=== PATIENT | female | born 1950 | race Caucasian/White ===

== ENCOUNTER 2020-03-22 01:32 | Inpatient (IN) | payer MEDICARE, BC ==
--- NOTE | 2020-03-22 01:52 | EDM.PDOC ---
ED HPI GENERAL MEDICAL PROBLEM - General Chief Complaint: General Stated Complaint: generalized weakness Time Seen by Provider: 03/22/20 01:47 Source of Information: Reports: Patient History Limitations: Reports: No Limitations - History of Present Illness INITIAL COMMENTS - FREE TEXT/NARRATIVE: 69 YO WF WITH PMH OF CIRRHOSIS PRESENTS TO ER FROM HOME WITH 3 DAY HISTORY OF GENERALIZED WEAKNESS. PT REPORTS SHE HAS END STAGE LIVER DISEASE AND IS IN THE PROCESS OF GOING ON HOSPICE CARE. PT REPORTS OVER THE LAST 3 DAYS SHE HAS FELT MORE UNSTABLE AND HAS REQUIRED MORE ASSISTANCE WITH HER ACTIVITIES OF DAILY LIVING AND STATES "MY CAN'T HELP ME ANYMORE DUE TO HIS WEAK HEART." PT DENIES SLURRED SPEECH, NO FACIAL DROOP, NO BLURRED VISION. PT REPORTS MILD HEADACHE AND NAUSEA WITHOUT VOMITING. PT ABLE TO STAND BUT FEELS TO WEAK TO WALK. PT DENIES FEVER/CHILLS, NO CHEST PAIN OR SHORTNESS OF BREATH. PT IS ALERT AND ORIENTED X 4. PT MOVING ALL EXTREMITIES WITHOUT DIFFICULTY AND DENIES ANY LEFT/RIGHT SIDED NEGLECT. Onset Date: 03/19/20 Duration: Day(s): (3) Location: Reports: Generalized Quality: Reports: Dull Severity: Mild Improves with: Reports: Rest Worsens with: Reports: Movement Associated Symptoms: Reports: No Other Symptoms, Headaches, Malaise, Nausea/Vomiting, Weakness. Denies: Confusion, Chest Pain, Diaphoresis, Fever/Chills, Seizure, Shortness of Breath, Syncope Headache Pain Score (Numeric/FACES): 4 - Related Data Allergies Allergy/AdvReac Type Severity Reaction Status Date / Time cephalexin monohydrate Allergy Rash Verified 03/22/20 02:34 [From Keflex] meperidine HCl [From Demerol] Allergy Stomach Verified 03/22/20 02:34 Upset metformin Allergy Headache Verified 03/22/20 02:34 morphine Allergy Cannot Verified 03/22/20 02:34 Remember niacin Allergy Tachycardia Verified 03/22/20 02:34 oxycodone Allergy Hallucinati Verified 03/22/20 02:34 ons Home Meds: Home Meds Furosemide 40 mg PO BID 08/31/14 [History] Pantoprazole [ProTONIX] 40 mg PO BEDTIME 08/31/14 [History] Insulin Aspart [NovoLOG] 4 units SUBCUT ASDIRECTED PRN 06/09/16 [History] traMADol [Ultram] 25 mg PO QAM 06/09/16 [History] traMADol [Ultram] 50 mg PO BEDTIME 06/09/16 [History] Insulin Degludec [Tresiba Flextouch U-200] 8 units SUBCUT BEDTIME 03/19/18 [History] Rifaximin [Xifaxan] 550 mg PO BID 10/29/18 [History] Clobetasol [Clobetasol 0.05%] 1 applic TOP BID PRN 03/22/20 [History] Sulfamethoxazole/Trimethoprim [Sulfamethoxazole-Tmp Ds Tablet] 1 tab PO BID 03/22/20 [History] amLODIPine [Norvasc] 2.5 mg PO 1900 03/22/20 [History] amLODIPine [Norvasc] 5 mg PO QAM 03/22/20 [History] Past Medical History HEENT History: Reports: Cataract, Impaired Vision Cardiovascular History: Reports: Hypertension Respiratory History: Reports: None Gastrointestinal History: Reports: Cirrhosis, GERD Other Gastrointestinal History: esophageal varices Genitourinary History: Reports: Renal Disease, Other (See Below) 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: Musculoskeletal History: Reports: Arthritis, Back Pain, Chronic, Fracture, Neck Pain, Chronic Neurological History: Reports: Other (See Below) Other Neuro History: neck surgery Psychiatric History: Reports: None Endocrine/Metabolic History: Reports: Diabetes, Type II, IDDM, Obesity/BMI 30+ Hematologic History: Reports: Anemia, Blood Transfusion(s) Immunologic History: Reports: None Oncologic (Cancer) History: Reports: None Dermatologic History: Reports: None Other Dermatologic History: diabetic sores on legs (small ) - Infectious Disease History Infectious Disease History: Reports: Mumps - Past Surgical History HEENT Surgical History: Reports: Cataract Surgery Cardiovascular Surgical History: Reports: None GI Surgical History: Reports: Cholecystectomy, Colonoscopy, Other (See Below) Female Surgical History: Reports: Hysterectomy Neurological Surgical History: Reports: C-Spine Musculoskeletal Surgical History: Reports: Knee Replacement, Other (See Below) Social & Family History - Family History Family Medical History: Noncontributory Cardiac: Reports: Heart Failure Neurological: Reports: CVA - Caffeine Use Caffeine Use: Reports: Coffee Caffeine Use Comment: daily in am ED ROS GENERAL - Review of Systems Review Of Systems: See Below Constitutional: Reports: Malaise, Weakness HEENT: Reports: No Symptoms Respiratory: Reports: No Symptoms Cardiovascular: Reports: No Symptoms Endocrine: Reports: No Symptoms GI/Abdominal: Reports: Nausea : Reports: No Symptoms Musculoskeletal: Reports: No Symptoms Skin: Reports: No Symptoms Neurological: Reports: Headache. Denies: Confusion, Dizziness, Numbness, Paresthesia, Pre-Existing Deficit, Trouble Speaking Psychiatric: Reports: No Symptoms Hematologic/Lymphatic: Reports: No Symptoms Immunologic: Reports: No Symptoms ED EXAM, GENERAL - Physical Exam Exam: See Below Exam Limited By: No Limitations General Appearance: Alert, WD/WN, No Apparent Distress Eye Exam: Bilateral Eye: EOMI, PERRL Throat/Mouth: Normal Inspection, Normal Lips, Normal Teeth, Normal Gums, Normal Oropharynx, Normal Voice, No Airway Compromise Head: Atraumatic, Normocephalic Neck: Normal Inspection, Supple, Non-Tender, Full Range of Motion Respiratory/Chest: No Respiratory Distress, Lungs Clear, Normal Breath Sounds, No Accessory Muscle Use, Chest Non-Tender Cardiovascular: No Edema, No Gallop, No JVD, No Rub, Bradycardia, Irregularly Irregular GI/Abdominal: Normal Bowel Sounds, Soft, Non-Tender, No Organomegaly, No Abnormal Bruit, No Mass Back Exam: Normal Inspection, Full Range of Motion, NT Extremities: Normal Inspection, Normal Range of Motion, Non-Tender, Normal Capillary Refill, No Pedal Edema Neurological: Alert, Oriented, CN II-XII Intact, Normal Cognition, Normal Gait, Normal Reflexes, No Motor/Sensory Deficits Psychiatric: Normal Affect, Normal Mood Skin Exam: Warm, Dry, Intact, Normal Color, No Rash Lymphatic: No Adenopathy EKG INTERPRETATION EKG Date: 03/22/20 Time: 02:00 Rhythm: A-Fib Rate (Beats/Min): 33 P-Wave: Absent QRS: RBBB ST-T: Normal QT: Normal Comparison: NA - No Prior EKG Course - Vital Signs Last Recorded V/S: Last Vital Signs Temp 36.6 C 03/22/20 02:02 Pulse 29 L 03/22/20 02:02 Resp 12 03/22/20 02:02 BP 122/44 L 03/22/20 02:02 Pulse Ox 96 03/22/20 02:02 - Orders/Labs/Meds Orders: Active Orders 24 hr Category Date Time Status EKG Documentation Completion [RC] ASDIRECTED Care 03/22/20 01:46 Active RT Aerosol Therapy [RC] ASDIRECTED Care 03/22/20 03:32 Active Chest 1V Frontal [CR] Stat Exams 03/22/20 01:45 Ordered Head wo Cont [CT] Stat Exams 03/22/20 01:45 Ordered Dextrose 50% in Water Med 03/22/20 03:45 Once 50 ml IV NOW ONE Insulin Regular, Human [HumuLIN R] Med 03/22/20 03:45 Once 10 unit IV NOW ONE Sodium Chloride 0.9% [Normal Saline] 1,000 ml Med 03/22/20 03:22 Active IV .BOLUS EKG 12 Lead [EK] Stat Ther 03/22/20 01:45 Ordered Medication Orders Dextrose/Water (Dextrose 50% In Water) 50 ml IV NOW ONE Stop: 03/22/20 03:46 Sodium Chloride (Normal Saline) 1,000 mls @ 999 mls/hr IV .BOLUS ONE Stop: 03/22/20 04:22 Insulin Human Regular (Humulin R) 10 unit IV NOW ONE Stop: 03/22/20 03:46 Labs: Laboratory Tests 03/22/20 03/22/20 03/22/20 Range/Units 02:28 02:28 02:28 WBC 8.85 (5.00-10.00) 10^3/uL RBC 3.77 L (3.80-5.50) 10^6/uL Hgb 10.7 L D (12.0-16.0) g/dL Hct 32.4 L (37.0-47.0) % MCV 85.9 D (82.0-92.0) fL MCH 28.4 (27.0-31.0) pg MCHC 33.0 (32.0-36.0) g/dL RDW 14.7 H (11.5-14.5) % Plt Count 280 D (150-400) 10^3/uL MPV 9.7 (7.4-10.4) fL Immature Gran % (Auto) 0.6 (0.0-5.0) % Neut % (Auto) 83.3 H (50.0-70.0) % Lymph % (Auto) 4.1 L (20.0-40.0) % Eddy % (Auto) 10.7 H (2.0-8.0) % Eos % (Auto) 0.7 L (1.0-3.0) % Baso % (Auto) 0.6 (0.0-1.0) % Neut # (Auto) 7.38 H (2.50-7.00) 10^3/uL Lymph # (Auto) 0.36 L (1.00-4.00) 10^3/uL Eddy # (Auto) 0.95 H (0.10-0.80) 10^3/uL Eos # (Auto) 0.06 L (0.10-0.30) 10^3/uL Baso # (Auto) 0.05 (0.00-0.10) 10^3/uL Immature Gran # (Auto) 0.05 (0.00-0.50) 10^3/uL PT 11.5 H (9.2-11.2) SEC INR 1.1 (0.9-1.1) APTT 30.9 (22.8-31.4) SEC Sodium 126 L (136-145) mmol/L Potassium 9.1 H* D (3.3-5.3) mmol/L Chloride 97 L (98-115) mmol/L Carbon Dioxide 14.8 L D (21.0-32.0) mmol/L Anion Gap 23.3 H (5-15) mmol/L BUN 90 H* D (6-25) mg/dL Creatinine 4.03 H D (0.51-1.17) mg/dL Est Cr Clr Drug Dosing 10.59 mL/min Estimated GFR (MDRD) 11 mL/min Glucose 118 H (75 - 99) mg/dL Calcium 8.9 (8.7-10.3) mg/dL Total Bilirubin 0.4 (0.2-1.0) mg/dL AST 40 H (15-37) U/L ALT 20 (12-78) U/L Alkaline Phosphatase 215 H (46-116) IU/L Ammonia (11-32) umol/L Creatine Kinase (26-276) U/L CK-MB (CK-2) (0.00-4.30) ng/mL Troponin I (0.00-0.070) ng/mL Total Protein 7.2 (6.4-8.2) g/dL Albumin 2.49 L (3.00-4.80) g/dL Specimen Type Urine Color (YELLOW) Urine Appearance (CLEAR) Urine pH (5.0-9.0) Ur Specific [place] (1.005-1.030) Urine Protein (NEGATIVE) mg/dL Urine Glucose (UA) (NEGATIVE) mg/dL Urine Ketones (NEGATIVE) mg/dL Urine Occult Blood (NEGATIVE) Urine Nitrite (NEGATIVE) Urine Bilirubin (NEGATIVE) Urine Urobilinogen (0.2-1.0) E.U./dL Ur Leukocyte Esterase (NEGATIVE) Urine RBC (0-5) /HPF Urine WBC (0-5) /HPF Ur Epithelial Cells /LPF Amorphous Sediment (0/HPF) /HPF Urine Bacteria (NONE TO FEW) /HPF 03/22/20 03/22/20 03/22/20 Range/Units 02:28 02:28 02:55 WBC (5.00-10.00) 10^3/uL RBC (3.80-5.50) 10^6/uL Hgb (12.0-16.0) g/dL Hct (37.0-47.0) % MCV (82.0-92.0) fL MCH (27.0-31.0) pg MCHC (32.0-36.0) g/dL RDW (11.5-14.5) % Plt Count (150-400) 10^3/uL MPV (7.4-10.4) fL Immature Gran % (Auto) (0.0-5.0) % Neut % (Auto) (50.0-70.0) % Lymph % (Auto) (20.0-40.0) % Eddy % (Auto) (2.0-8.0) % Eos % (Auto) (1.0-3.0) % Baso % (Auto) (0.0-1.0) % Neut # (Auto) (2.50-7.00) 10^3/uL Lymph # (Auto) (1.00-4.00) 10^3/uL Eddy # (Auto) (0.10-0.80) 10^3/uL Eos # (Auto) (0.10-0.30) 10^3/uL Baso # (Auto) (0.00-0.10) 10^3/uL Immature Gran # (Auto) (0.00-0.50) 10^3/uL PT (9.2-11.2) SEC INR (0.9-1.1) APTT (22.8-31.4) SEC Sodium (136-145) mmol/L Potassium (3.3-5.3) mmol/L Chloride (98-115) mmol/L Carbon Dioxide (21.0-32.0) mmol/L Anion Gap (5-15) mmol/L BUN (6-25) mg/dL Creatinine (0.51-1.17) mg/dL Est Cr Clr Drug Dosing mL/min Estimated GFR (MDRD) mL/min Glucose (75 - 99) mg/dL Calcium (8.7-10.3) mg/dL Total Bilirubin (0.2-1.0) mg/dL AST (15-37) U/L ALT (12-78) U/L Alkaline Phosphatase (46-116) IU/L Ammonia 44 H (11-32) umol/L Creatine Kinase 62 (26-276) U/L CK-MB (CK-2) 3.10 (0.00-4.30) ng/mL Troponin I 0.21 H* (0.00-0.070) ng/mL Total Protein (6.4-8.2) g/dL Albumin (3.00-4.80) g/dL Specimen Type Urinvoid Urine Color Light yellow (YELLOW) Urine Appearance Turbid H (CLEAR) Urine pH 5.5 (5.0-9.0) Ur Specific [place] >= 1.030 (1.005-1.030) Urine Protein >=300 H (NEGATIVE) mg/dL Urine Glucose (UA) Negative (NEGATIVE) mg/dL Urine Ketones Negative (NEGATIVE) mg/dL Urine Occult Blood Large H (NEGATIVE) Urine Nitrite Negative (NEGATIVE) Urine Bilirubin Negative (NEGATIVE) Urine Urobilinogen 0.2 (0.2-1.0) E.U./dL Ur Leukocyte Esterase Negative (NEGATIVE) Urine RBC 30-40 H (0-5) /HPF Urine WBC 10-20 H (0-5) /HPF Ur Epithelial Cells Few /LPF Amorphous Sediment Many H (0/HPF) /HPF Urine Bacteria Few (NONE TO FEW) /HPF Meds: Medications Generic Name Dose Route Start Last Admin Trade Name Freq PRN Reason Stop Dose Admin Dextrose/Water 50 ml 03/22/20 03:45 Dextrose 50% In Water IV 03/22/20 03:46 NOW ONE Sodium Chloride 1,000 mls @ 999 mls/hr 03/22/20 03:22 Normal Saline IV 03/22/20 04:22 .BOLUS ONE Insulin Human Regular 10 unit 03/22/20 03:45 Humulin R IV 03/22/20 03:46 NOW ONE Discontinued Medications Generic Name Dose Route Start Last Admin Trade Name Freq PRN Reason Stop Dose Admin Albuterol 2.5 mg 03/22/20 03:29 Proventil Neb Soln NEB 03/22/20 03:30 ONETIME ONE Calcium Gluconate 1 gm 03/22/20 03:25 Calcium Gluconate IVPUSH 03/22/20 03:26 ONETIME ONE Sodium Polystyrene Sulfonate 15 gm 03/22/20 03:27 Kayexalate PO 03/22/20 03:28 ONETIME ONE - Radiology Interpretation Free Text/Narrative:: CT HEAD-NAD CXR-NAD - Re-Assessments/Exams Free Text/Narrative Re-Assessment/Exam: 03/22/20 02:22 DISCUSSED SLOW HEART RATE AND NEED FOR EMERGENT CARDIOLOGY EVALUATION AND POSSIBLE PACEMAKER FOR FURTHER EVALUATION AND TREATMENT. PT STATES SHE DOES NOT WANT ANY TREATMENT FOR HER HEART AND SLOW HEART RATE. PT IS AGREEABLE TO ADMISSION OVERNIGHT AND TO GO HOME ON HOSPICE CARE. PT ALERT AND ORIENTED X 4 AND IN NAD AT THIS TIME. IS AT BEDSIDE AND IN AGREEMENT WITH PLAN OF CARE. PT HAS A DNR/DNI. 03/22/20 02:24 03/22/20 02:30 Departure - Departure Time of Disposition: 03:46 Disposition: Admitted As Inpatient 64 Condition: Critical Clinical Impression: Hyponatremia, Hyperkalemia, Elevated troponin I level, End stage liver disease, Bradycardia, DNR (do not resuscitate), Hospice care - Discharge Information Referrals: Marcy Henriquez MD [Primary Care Provider] - Forms: ED Department Discharge Sepsis Event Note (ED) - Focused Exam Vital Signs: Vital Signs Temp Pulse Resp BP Pulse Ox 03/22/20 02:02 36.6 C 29 L 12 122/44 L 96 - My Orders Last 24 Hours: My Active Orders 03/22/20 01:45 Chest 1V Frontal [CR] Stat Head wo Cont [CT] Stat EKG 12 Lead [EK] Stat 03/22/20 01:46 EKG Documentation Completion [RC] ASDIRECTED 03/22/20 03:22 Sodium Chloride 0.9% [Normal Saline] 1,000 ml IV .BOLUS 03/22/20 03:32 RT Aerosol Therapy [RC] ASDIRECTED 03/22/20 03:45 Dextrose 50% in Water 50 ml IV NOW ONE Insulin Regular, Human [HumuLIN R] 10 unit IV NOW ONE - Assessment/Plan Last 24 Hours: My Active Orders 03/22/20 01:45 Chest 1V Frontal [CR] Stat Head wo Cont [CT] Stat EKG 12 Lead [EK] Stat 03/22/20 01:46 EKG Documentation Completion [RC] ASDIRECTED 03/22/20 03:22 Sodium Chloride 0.9% [Normal Saline] 1,000 ml IV .BOLUS 03/22/20 03:32 RT Aerosol Therapy [RC] ASDIRECTED 03/22/20 03:45 Dextrose 50% in Water 50 ml IV NOW ONE Insulin Regular, Human [HumuLIN R] 10 unit IV NOW ONE Assessment:: 1. END STAGE LIVER DISEASE 2. BRADYCARDIA 3. HYPERKALEMIA 4. ACUTE ON CHRONIC RENAL FAILURE 5. HYPONATREMIA 6. ELEVATED TROP I 7. DNR/DNI 8. HOSPICE CARE Plan: 1. ADMIT TO MEDICINE- DR MARCY STILL 2. NS @125CC/HR FOR HYPONATREMIA 3. CALCIUM GLUCONATE; KAYEXALATE; INSULIN/D50; ALBUTEROL FOR HYPERKALEMIA 4. REPEAT LABS IN AM 5. COMFORT CARE 6. HOSPICE CONSULT IN AM
[2020-03-22 03:02] LABS: PTT,PARTIAL THROMBOPLSTIN TIME 30.9 SEC (22.8-31.4)
[2020-03-22] MEDS ORDERED: Sodium Chloride 0.9% 1,000 ML IV ONE (03:22)
[2020-03-22] MEDS ORDERED: Calcium Gluconate 10% 1 GM/10 ML SDV IVPUSH ONE (03:25)
[2020-03-22] MEDS ORDERED: Sodium Polystyrene Sulfonate 15 GM/60 ML Susp 60 ML Bot PO ONE (03:27)
[2020-03-22] MEDS ORDERED: Albuterol 0.083% 2.5 MG/3 ML Neb Soln NEB ONE (03:29)
[2020-03-22 03:37] LABS: ANION GAP 23.3 mmol/L (5-15)
[2020-03-22] MEDS ORDERED: 50% Dextrose in Water 50 ML Syringe IV ONE (03:45)
[2020-03-22] MEDS ORDERED: Insulin Regular, Human 100 Units/ML 10 ML Vial IV ONE (03:45)
[2020-03-22] MEDS ORDERED: Sodium Chloride 0.9% 10 ML Syringe FLUSH PRN (03:49)
[2020-03-22] MEDS ORDERED: Albuterol 0.083% 2.5 MG/3 ML Neb Soln NEB PRN (03:49)
[2020-03-22] MEDS: Sodium Chloride 0.9% 1,000 ML IV SCH ×3 (06:03→22:22)
[2020-03-22 08:34] LABS: ANION GAP 22.5 mmol/L (5-15)
--- NOTE | 2020-03-22 08:44 | CR ---
[id number] RAD/RAD Chest PA or AP 1V EXAM: RAD Chest PA or AP 1V INDICATION: WEAKNESS COMPARISON: October 30, 2017. DISCUSSION: Cardiomediastinal silhouette is stable in size and contour. No infiltrate, effusion, pneumothorax, or edema. IMPRESSION: No acute cardiopulmonary abnormality. Chris Bassett DO 03/22/20 0842 Thank you for allowing us to participate in the care of your patient.
--- NOTE | 2020-03-22 09:04 | CT ---
[id number] CT/CT Head WO IV EXAM: CT Head WO IV CLINICAL DATA: WEAKNESS COMPARISON STUDY: None FINDINGS: No intracranial hemorrhage, extra-axial fluid collection, mass, or acute ischemia. Generalized parenchymal atrophy with scattered areas of nonspecific white matter disease, commonly seen as sequela of chronic microvascular ischemia. Soft tissues are unremarkable. Mild mucosal thickening in the paranasal sinuses. The mastoid air cells are well aerated and clear. IMPRESSION: No acute intracranial findings. Chris Bassett DO 03/22/20 0903 Thank you for allowing us to participate in the care of your patient.
[2020-03-22] MEDS ORDERED: Insulin Aspart 100 Units/ML 3 ML Pen SUBCUT PRN (13:47)
[2020-03-22] MEDS ORDERED: Sulfamethoxazole/Trimethoprim 800-160 MG Tab PO SCH (14:00)
[2020-03-22] MEDS: traMADol 50 MG Tab PO SCH (14:41)
[2020-03-22] MEDS ORDERED: CLOBETASOL 0.05% TOP PRN (15:58)
[2020-03-22] MEDS: traMADol 50 MG Tab PO PRN (18:10)
[2020-03-22] MEDS ORDERED: amLODIPine 2.5 MG Tab PO SCH (19:00)
[2020-03-22] MEDS ORDERED: Pantoprazole 40 MG Tab.CR PO SCH (21:00)
[2020-03-22] MEDS ORDERED: Furosemide 20 MG Tab PO SCH (21:00)
[2020-03-22] MEDS ORDERED: traMADol 50 MG Tab PO SCH (21:00)
[2020-03-23] MEDS: Sodium Chloride 0.9% 1,000 ML IV SCH (06:32)
[2020-03-23 06:43] VITALS: BP 143/66; PULSE 89
[2020-03-23] MEDS: traMADol 50 MG Tab PO SCH ×2 (07:14→08:09)
[2020-03-23] MEDS ORDERED: traMADol 50 MG Tab PO SCH (09:00)
[2020-03-23] MEDS ORDERED: amLODIPine 5 MG Tab PO SCH (09:00)
[2020-03-23] MEDS: traMADol 50 MG Tab PO PRN (09:34)
--- NOTE | 2020-03-23 15:54 | DISCH ---
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 This is a 69-year-old white female with a past history of MAGAÑA, who presented to the emergency room from home via EMS with a 3-day history of generalized weakness. She has end-stage liver disease. She has been dependent on paracentesis in the past, but has recently had a drain placed, so this can be drained every 2-3 days. The patient reported to the ER provider that over the past 3 days she has felt more unstable and required more assistance with her activities. Her takes care of her at home and has multiple medical problems as well and is frankly exhausted. The patient denied any slurred speech, no facial droop, no blurred vision. She did report a mild headache and nausea without vitamin. The patient is able to stand, but feels weak, too weak to walk. The patient's lab work in the emergency room was significant for low RBC of 3.77 and a low hemoglobin of 10.7. Comprehensive metabolic panel showed a potassium of 9.1, which is a critical value, normal is 3.3 to 5.3. BUN and creatinine were 90 and 4.03 respectively. Estimated GFR was 11. AST was elevated at 40. Alkaline phosphatase was elevated at 215. Her albumin was low at 2.49. She did receive IV fluids and regular insulin to reduce her potassium. Calcium gluconate and Kayexalate were also given. She had lab work repeated yesterday morning, which showed an improvement in her potassium from 9.1 to 8.2. BUN and creatinine remained elevated at 88 and 4.01. The patient was on Bactrim when she presented to the emergency room. Apparently last Friday, she was started on Bactrim for an infection in her leg. Due to her renal function, this was discontinued shortly after admission. She also had an elevated troponin of 0.21. The patient is a DNR/DNI and wishes to go home on hospice. She wished to have comfort care. Over the course of the hospitalization, the patient's condition has not deteriorated. We did not draw lab work this morning in anticipation for discharge. We did discontinue her Bactrim as well as furosemide. Her amlodipine was also discontinued due to the fact that hospice would not cover this medication. PHYSICAL EXAMINATION: GENERAL: The patient is up in a chair. She is alert and oriented to time, place, person and self. She asks appropriate questions regarding her prognosis and what to expect. SKIN: Pale, warm, dry to touch. HEART AND LUNGS: Normal. ABDOMEN: She does have an intact drain, which drains the ascites from her abdomen. EXTREMITIES: She has minimal pedal edema. IMPRESSION: 1. Nonalcoholic steatohepatitis, end-stage liver disease, going home on hospice care. 2. Hyperkalemia. This is mostly related to her renal failure. 3. Renal failure. This will most likely become progressive. 4. Weakness. Hospice has evaluated the home and has delivered the equipment that the patient will need on discharge. I did discuss the patient taking Kayexalate at home to help with her potassium. She is not interested in this. All medications were continued as before with the exception of furosemide and amlodipine and Bactrim. I have updated Dr. Marcy Joe regarding this patient's condition on disposition. She will be followed by [facility] whose medical director of hospice is Alicia Ellis. Hopefully, we will be able to stay updated on the patient's condition. /[id number]/MODL
== END 2020-03-23 10:05 | disposition hospice, home (50) | DRG 683 ==
LOC: KA.ED 01:32 → KA.MS 03:48 → UNDOADMIN 05:20
PROVIDERS: ADMIT Physician Assistant Medical; ATTEND Internal Medicine
DX: N17.9 Acute kidney failure, unspecified (principal); E87.1 Hypo-osmolality and hyponatremia; K75.81 Nonalcoholic steatohepatitis (NASH); K72.90 Hepatic failure, unspecified without coma; E87.5 Hyperkalemia; R53.1 Weakness; H54.7 Unspecified visual loss; I10 Essential (primary) hypertension; Z66 Do not resuscitate; K74.60 Unspecified cirrhosis of liver; N28.9 Disorder of kidney and ureter, unspecified; M19.90 Unspecified osteoarthritis, unspecified site; Z20.828 Contact with and (suspected) exposure to other viral communicable diseases; Z51.5 Encounter for palliative care; K21.9 Gastro-esophageal reflux disease without esophagitis; E11.9 Type 2 diabetes mellitus without complications; M54.9 Dorsalgia, unspecified; G89.29 Other chronic pain; Z98.49 Cataract extraction status, unspecified eye; Z90.49 Acquired absence of other specified parts of digestive tract; M54.2 Cervicalgia; Z96.659 Presence of unspecified artificial knee joint; Z98.890 Other specified postprocedural states; R00.1 Bradycardia, unspecified; Z88.1 Allergy status to other antibiotic agents; E66.9 Obesity, unspecified; D64.9 Anemia, unspecified; N18.9 Chronic kidney disease, unspecified; R79.89 Other specified abnormal findings of blood chemistry; I12.9 Hypertensive chronic kidney disease with stage 1 through stage 4 chronic kidney disease, or unspecified chronic kidney disease; E11.22 Type 2 diabetes mellitus with diabetic chronic kidney disease; Z79.4 Long term (current) use of insulin; Z79.899 Other long term (current) drug therapy; Z88.5 Allergy status to narcotic agent; Z68.28 Body mass index [BMI] 28.0-28.9, adult; Z88.8 Allergy status to other drugs, medicaments and biological substances; Z88.6 Allergy status to analgesic agent; Z90.710 Acquired absence of both cervix and uterus
CPT/HCPCS: 36415; 70450; 71045; 80048; 80053; 81001; 82140; 82550; 82553; 82962; 84484; 85025; 85610; 85730; 94640; 99285-25; A9270-GY; J0610; J7030; J7613-GY; U0002